=== PATIENT | male | born 1960 | race Caucasian/White ===

== ENCOUNTER → 2021-08-29 | Outpatient (CLI) | payer OTHER ==
--- NOTE | 2021-08-29 10:12 | XR ---
EXAMINATION TYPE: XR knee limited RT DATE OF EXAM: 08/29/2021 COMPARISON: NONE HISTORY: Pain TECHNIQUE: Two views are submitted. FINDINGS: Joint spaces are preserved. Osseous structures are intact. No acute fracture seen. Spurring along the upper margin of the patella with a small amount of fluid suprapatellar bursa. IMPRESSION: 1. No acute fracture or dislocation. 2. Mild hypertrophic spurring of the patella. There is a small amount of fluid in the subdeltoid burs a. Correlate clinically
== END | disposition home or self-care (01) ==
LOC: RADXRMAIN 09:41
PROVIDERS: ATTEND Family Medicine
DX: M25.761 Osteophyte, right knee (principal)

== ENCOUNTER → 2022-03-02 | Outpatient (CLI) | payer SELFPAY ==
--- NOTE | 2022-03-02 15:33 | US ---
EXAMINATION TYPE: US venous doppler duplex LE LT DATE OF EXAM: 03/02/2022 3:17 PM COMPARISON: NONE CLINICAL HISTORY: R22.42 LOCALIZED SWELLING, MASS AND LUMP, LEFT LOW. Pain and edema SIDE PERFORMED: Left TECHNIQUE: The lower extremity deep venous system is examined utilizing real time linear array sonog tong with graded compression, doppler sonography and color-flow sonography. VESSELS IMAGED: Common Femoral Vein Deep Femoral Vein Greater Saphenous Vein * Femoral Vein Popliteal Vein Small Saphenous Vein * Proximal Calf Veins (* superficial vessels) Left Leg: Negative for DVT Grayscale, color doppler, spectral doppler imaging performed of the deep veins of the left lower extr emity. There is normal flow, compressibility, vascular waveforms. IMPRESSION: No ultrasound evidence for acute DVT in the left lower extremity.
== END | disposition home or self-care (01) ==
LOC: RADUSWWP 14:36
PROVIDERS: ATTEND Family Medicine
DX: R22.42 Localized swelling, mass and lump, left lower limb (principal)

== ENCOUNTER → 2022-08-10 | Outpatient (CLI) | payer OTHER ==
--- NOTE | 2022-08-10 14:21 | US ---
EXAMINATION TYPE: US venous doppler duplex LE RT DATE OF EXAM: 08/10/2022 1:55 PM COMPARISON: NONE CLINICAL INDICATION: Male, 61 years old with history of R22.41 LOCALIZED SWELLING, MASS AND LUMP, RIG HT; swelling within right calf and ankle, no h/o dvt SIDE PERFORMED: Right TECHNIQUE: The lower extremity deep venous system is examined utilizing real time linear array sonog tong with graded compression, doppler sonography and color-flow sonography. VESSELS IMAGED: Common Femoral Vein Deep Femoral Vein Greater Saphenous Vein * Femoral Vein Popliteal Vein Small Saphenous Vein * Proximal Calf Veins (* superficial vessels) Right Leg: Negative for DVT thrombus seen within GSV in calf at area of swelling, GSV was patent u p near knee *spoke with Fannie Bryan's nurse and they want him seen at office. Grayscale, color doppler, spectral doppler imaging performed of the deep veins of the right lower ext remity. There is normal flow, compressibility, vascular waveforms. IMPRESSION: Acute SPECT distally in the right lower extremity. [id number] subcutaneous edema n oted towards the study also distally in the right lower extremity.
== END | disposition home or self-care (01) ==
LOC: RADUSWWP 13:37
PROVIDERS: ATTEND Family Medicine
DX: R60.0 Localized edema (principal)

== ENCOUNTER → 2022-11-22 | Outpatient (CLI) | payer OTHER ==
--- NOTE | 2022-11-22 10:16 | XR ---
EXAMINATION TYPE: XR shoulder complete RT DATE OF EXAM: 11/22/2022 COMPARISON: NONE HISTORY: Pain TECHNIQUE: Three views are submitted. FINDINGS: The osseous structures are intact. There is no acute fracture or dislocation. Mild AC joint arthropa thy. IMPRESSION: 1. No acute process. AC joint arthropathy.
== END | disposition home or self-care (01) ==
LOC: RADXRMAIN 09:32
PROVIDERS: ATTEND Family Medicine
DX: M19.011 Primary osteoarthritis, right shoulder (principal)

== ENCOUNTER → 2023-04-09 | Outpatient (CLI) | payer OTHER ==
--- NOTE | 2023-04-09 10:10 | MR ---
EXAMINATION TYPE: MR shoulder RT wo con DATE OF EXAM: 04/09/2023 COMPARISON: HISTORY: Rt shoulder pain TECHNIQUE: Multiplanar, multisequence imaging of the shoulder is performed without contrast. FINDINGS: Rotator Cuff: Supraspinatus tendon demonstrates a partial full-thickness tear of the anterior fibers. There is a mo derate-sized subacromial bursal fluid collection. There is partial retraction of the anterior fibers of the supraspinatus tendon. Infraspinatus tendon is intact. Subscapularis tendon demonstrates thickening and increased signal near its surgery compatible with te ndinosis Acromioclavicular Joint: Marked AC joint hypertrophy results in impingement of the rotator cuff. Glenohumeral Joint: No sizable joint effusion. There is narrowing of the glenohumeral joint. There is increased signal and thickening of the inferior glenohumeral ligament compatible strain or adhesive capsulitis. Labrum: There is a 3 mm para labral cysts along the superior labrum and intrinsic abnormal signal brian picious for a SLAP tear likely degenerative. Biceps Tendon: There is marked thickening and increased signal within the distal margin of the biceps tendon within the rotator interval compatible with severe tendinosis and tear. Bone marrow signal: No focal abnormal marrow signal is appreciated. Other: No additional significant abnormality is appreciated. IMPRESSION: 1. Partial through thickness tear of the anterior fibers supraspinatus near the attachment. 2. Subscapularis distal tendinosis 3. AC joint hypertrophy with impingement. 4. Degenerative SLAP tear. 5. Biceps tendon is markedly thickened within the rotator interval with increased signal compatible w ith severe tendinosis. Split tear in the differential diagnosis.
== END | disposition home or self-care (01) ==
LOC: RADMRIMAIN 09:01
PROVIDERS: ATTEND Orthopaedic Surgery Hand Surgery
DX: S46.011A Strain of muscle(s) and tendon(s) of the rotator cuff of right shoulder, initial encounter (principal); M67.813 Other specified disorders of tendon, right shoulder; M19.011 Primary osteoarthritis, right shoulder; M25.811 Other specified joint disorders, right shoulder

== ENCOUNTER → 2024-07-30 | Outpatient (CLI) | payer BC ==
--- NOTE | 2024-07-30 08:04 | US ---
EXAMINATION TYPE: US groin LT DATE OF EXAM: 07/30/2024 COMPARISON: NONE CLINICAL INDICATION: Male, 63 years old with history of K40.90 UNIL INGUINAL HERNIA, W/O OBST OR GANG R, NO; Left groin swelling per patient TECHNIQUE: Grayscale with or without color Doppler imaging of the area of hernia concern. Real-time scanning was performed by the education managers utilizing Valsalva and additional dynamic maneuve rs to assess for hernia. Images of the contralateral side were also acquired for direct comparison. FINDINGS: Assess for hernia at location of: Left groin No sonographic evidence visualized of inguinal hernia at time of scan Dynamic imaging was performed. IMPRESSION: As above. [facility], , 07/30/2024 8:02 AM
== END | disposition home or self-care (01) ==
LOC: RADUSWWP 07:08
PROVIDERS: ATTEND Family Medicine
DX: K40.90 Unilateral inguinal hernia, without obstruction or gangrene, not specified as recurrent (principal)

== ENCOUNTER → 2024-09-22 | Outpatient (CLI) | payer BC ==
[2024-09-22 14:59] LABS: Basophils # (A) 0.09 X 10*3/uL (0.00-0.10); Basophils % (A) 1.4 %; Eosinophils # (A) 0.12 X 10*3/uL (0.04-0.35); Eosinophils % (A) 1.9 %; HCT 47.3 % (39.6-50.0); HGB 15.9 g/dL (13.0-17.0); Immature Grans, Automated 0.30 %; Lymphocytes # (A) 1.60 X 10*3/uL (0.90-5.00); Lymphocytes % (A) 25.6 %; MCH 31.3 pg (27.0-32.0); MCHC 33.6 g/dL (32.0-37.0); MCV 93.1 FL (80.0-97.0); Monocytes # (A) 0.44 X 10*3/uL (0.20-1.00); Monocytes % (A) 7.1 %; NRBC Per 100 WBC 0 X 10*3/uL (0.00-0.01); Neutrophils # (A) 3.97 X 10*3/uL (1.80-7.70); Neutrophils % (A) 63.7 %; Platelet Count 201 X 10*3/uL (140-440); RBC 5.08 X 10*6/uL (4.40-5.60); RDW 12.6 % (11.5-14.5); WBC 6.24 X 10*3/uL (4.50-10.00)
== END | disposition home or self-care (01) ==
LOC: LABPAT 12:02
PROVIDERS: ATTEND Surgery
DX: Z01.818 Encounter for other preprocedural examination (principal); K40.90 Unilateral inguinal hernia, without obstruction or gangrene, not specified as recurrent
CPT/HCPCS: 85025; 86850; 86900; 86901; 93005

== ENCOUNTER → 2024-10-02 | Day surgery (SDC) | payer BC ==
[~2024-10-02] MED LIST: ACETAMINOPHEN TAB 325 MG TAB PO SCH; GLYCOPYRROLATE 0.2 MG/ML 2 ML VIAL ONE; HYDROmorphone (PF) 1 MG/ML ONE; HYDROmorphone 0.5 MG/0.5 ML SYRINGE IVP PRN; IBUPROFEN 600 MG TAB PO SCH; KETOROLAC 15 MG/ML 1 ML VIAL ONE; LIDOCAINE 1% INJ 10MG/ML (20 ML MDV) ONE; MIDAZOLAM 2 MG/2 ML VIAL IV PRN; MIDAZOLAM 2 MG/2 ML VIAL ONE; NEOSTIGMINE 1 MG/ML 10 ML VIAL ONE; PROPOFOL 10 MG/ML 20 ML VIAL IV ONE; ROCURONIUM 10 MG/ML (5 ML VIAL) IV ONE; SCOPOLAMINE 1 MG/72 HR PATCH TRANSDERM ONE; SUCCINYLCHOLINE CHLORIDE 200 MG/10 ML VIAL IV ONE; fentaNYL (PF) 50 MCG/ML 2 ML AMP ONE
--- NOTE | 2024-10-02 07:38 | P.GSHP ---
History of Present Illness H&P Date: 10/02/24 Chief Complaint: Left inguinal hernia 64-year-old male seen in the office in July. Patient with left inguinal hernia enlarging in size. Painful at times. Had a scrotal ultrasound showing a small hydrocele on the left. No history of previous hernias. Past Medical History Past Medical History: Deep Vein Thrombosis (DVT) Additional Past Medical History / Comment(s): in foot dvt a few years ago History of Any Multi-Drug Resistant Organisms: None Reported Past Surgical History: No Surgical Hx Reported Additional Past Surgical History / Comment(s): vasectomy Past Anesthesia/Blood Transfusion Reactions: No Reported Reaction Smoking Status: Never smoker - Past Family History Father Family Medical History: No Reported History Medications and Allergies Home Medications Medication Instructions Recorded Confirmed Type No Known Home Medications 09/29/24 09/29/24 History Allergies Allergy/AdvReac Type Severity Reaction Status Date / Time No Known Allergies Allergy Verified 09/29/24 15:53 Surgical - Exam Physical exam: General: Well-developed, well-nourished HEENT: Normocephalic, sclerae nonicteric Abdomen: Nontender, nondistended, reducible left inguinal hernia Extremities: No edema Neuro: Alert and oriented Assessment and Plan (1) Left inguinal hernia Narrative/Plan: Will proceed with laparoscopic da Erica assisted repair left inguinal hernia with mesh, possible open, possible bilateral. Risks of bleeding, infection, recurrence, chronic pain, bladder and bowel injury, numbness, conversion to an open procedure, scarring, and anesthesia related complications were discussed. The correlation between hernia recurrence, obesity and smoking were reviewed in detail. The patient understands and wishes to proceed. Status: Acute Code(s): K40.90 - UNIL INGUINAL HERNIA, W/O OBST OR GANGR, NOT SPCF RECUR SNOMED Code(s): 629178820
[2024-10-02] MEDS: IV FLUID CONTINUATION 1,000 ML IV ONE (07:50)
[2024-10-02] MEDS: ACETAMINOPHEN TAB 500 MG TAB PO PRN (08:15)
[2024-10-02] MEDS: LACTATED RINGERS 1,000 ML IV SCH (08:16)
[2024-10-02] MEDS: HEPARIN SODIUM,PORCINE 5,000 UNIT/ML 1 ML VIAL SQ PRN (08:16)
[2024-10-02] MEDS: ONDANSETRON 4 MG/2 ML VIAL IVP ONE (08:16)
[2024-10-02] MEDS: DEXAMETHASONE SOD PHOSPHATE 4 MG/ML 1 ML VIAL IV ONE (08:16)
[2024-10-02] MEDS: TAMSULOSIN 0.4 MG CAP.ER.24H PO STA (08:31)
[2024-10-02] MEDS: BUPIVACAINE (PF) 0.25% 30 ML VIAL SQ ONE (09:26)
[2024-10-02] MEDS: LACTATED RINGERS 1,000 ML IV ONE ×2 (10:18→13:45)
--- NOTE | 2024-10-02 10:51 | P.OP ---
Date of Procedure: 10/02/24 Procedure(s) Performed: PREOPERATIVE DIAGNOSIS: Left inguinal hernia POSTOPERATIVE DIAGNOSIS: Left inguinal hernia and large left cord lipoma PROCEDURE: Laparoscopic da Erica assisted repair left inguinal hernia with mesh, excision left cord lipoma SURGEON: Dr. Martinez ANESTHESIA: General EBL: 10 cc OPERATIVE PROCEDURE DETAILS: Patient was placed in the operating table in the supine position. The patient was placed under general anesthesia. The abdomen was prepped and draped in usual sterile fashion. A small curvilinear supraumbilical incision was made. The fascia was retracted anteriorly with Elgin forceps. The Veress needle was inserted. The saline drop test was normal. Insufflation took place to 15 mmHg. An 8 mm trocar was placed into the peritoneal cavity. 2 additional 8 mm trochars were placed in the right upper quadrant and left upper quadrant under visualization. The robotic arms were then brought in and docked into place. The fenestrated bipolar was used in the left arm and the laparoscopic stephane was utilized in the right arm. A 30Â° 8 mm scope was used in the up position. The peritoneal cavity was inspected. Patient had a moderate-sized indirect hernia on the left. No sizable hernia on the right was seen. The peritoneum was incised in a horizontal fashion cephalad to the internal inguinal ring. Following that careful dissection of the preperitoneal space took place. This took place using both electrocautery, sharp dissection but primarily blunt dissection. Visualization of the pubic tubercle and Marcus's ligament took place medially. Full dissection took place laterally as well. The hernia sac was fully dissected. There was a large cord lipoma present. This was removed as 2 pieces later with the Endo Catch bag from the peritoneal cavity. It was dissected using a combination of blunt dissection, electrocautery, and I used the LigaSure given a couple of larger vessels there. No significant bleeding was seen. Once we had adequate space the [id number] Progrip mesh was advanced into the preperitoneal space and flattened out appropriately to cover all potential hernia sites. The mesh was sutured medially to the folding edge of Marcus's ligament. This was performed using a absorbable 3-0 V-Loc suture. The peritoneal defect was then closed using a absorbable 2-0 VLok suture. The hernia sac was incorporated into the peritoneal closure to help prevent future recurrence. The pneumoperitoneum was then evacuated. The skin of all 3 sites was closed using a 4-0 Monocryl stitch. Skin glue was then applied. TYPE OF MESH USED: ProGrip 15 x 10 cm LOCATION OF MESH: Preperitoneal FIXATION: Absorbable 3 oh V-Loc PREOPERATIVE DISCUSSION ON SMOKING CESSASTION: Yes PREOPERATIVE DISCUSSION ON MORBID OBESITY: Yes PREOPERATIVE DISCUSSION ON APPROPRIATE USE OF NARCOTIC USE: Yes PREOPERATIVE EDUCATION: Multi Modal, Smoking Cessation and Weight Loss with BMI over 35. DISPOSITION: Stable to recovery room
[2024-10-02 11:08] VITALS: TEMP 97
[2024-10-02 11:39] VITALS: RESP 16
[2024-10-02 14:51] VITALS: BP 144/88; PULSE 73
== END ==
LOC: OR 07:35
PROVIDERS: ATTEND Surgery
DX: K40.90 Unilateral inguinal hernia, without obstruction or gangrene, not specified as recurrent (principal); D17.6 Benign lipomatous neoplasm of spermatic cord; N43.3 Hydrocele, unspecified; Z86.718 Personal history of other venous thrombosis and embolism
CPT/HCPCS: 49650; 55559; S2900; 88304